=== PATIENT | female | born 1995 | race Caucasian/White ===

== ENCOUNTER → 2017-10-14 16:19 | Outpatient (CLI) | payer BC, SELFPAY ==
[2017-10-14 17:17] LABS: Erythrocyte Sedimentation Rate 13 mm/hr (0-20)
[2017-10-14 17:45] LABS: CRP < 2.90 mg/L (0.0-3.0); Uric Acid 4.5 mg/dL (2.6-6.0)
== END ==
PROVIDERS: Family Provider Family Medicine; PCP Family Medicine; Visit Provider Family Medicine
DX: M79.674 Pain in right toe(s) (principal); R21 Rash and other nonspecific skin eruption
CPT/HCPCS: 36415; 84550; 85652; 86140

== ENCOUNTER → 2017-11-03 14:08 | Outpatient (CLI) | payer BC, SELFPAY ==
--- NOTE | 2017-11-03 14:15 | RAD_ITS ---
STUDY: X-RAY - PELVIS REASON FOR EXAM: Female, 22 years old. Psoriatic arthropathy. TECHNIQUE: One view of the pelvis was obtained. COMPARISON: None. FINDINGS: There is a non-specific bowel gas pattern. Normal visualized soft tissue structures. Surgical clips right hemipelvis. Normal bilateral iliac wings, sacroiliac joints and visualized sacrum. Normal visualized bilateral superior and inferior pubic rami. Normal pubic symphysis. Normal ischial tuberosities. Normal visualized right femoral head. Normal right acetabulum. Normal right hip joint. No erosions. Normal visualized left femoral head. Normal left acetabulum. Normal left hip joint. No erosions. RAD/Pelvis 1 or 2 Views IMPRESSION: Normal x-ray examination of the pelvis. Electronically Signed: Pacheco Dsouza MD at 7:53 EDT , Service support ,
--- NOTE | 2017-11-03 14:15 | RAD_ITS ---
STUDY: X-RAY CHEST REASON FOR EXAM: Female, 22 years old. Psoriatic arthropathy. TECHNIQUE: PA and lateral chest. COMPARISON: None. FINDINGS: The lungs are clear and expanded. There is no demonstrated pleural abnormality. Normal size heart. Normal mediastinum and tiff. Normal visualized pulmonary arteries. Normal visualized aortic arch and descending thoracic aorta. Normal visualized thoracic spine. Normal visualized ribs, clavicles, and shoulders. No erosions. There is no demonstrated abnormality of the visualized soft tissue structures of the upper abdomen. RAD/Chest PA and Lateral IMPRESSION: Normal x-ray examination of the chest. Electronically Signed: Pacheco Dsouza MD at 7:53 EDT , Service support ,
[2017-11-03 15:35] LABS: Absolute Lymphocyte Count 1.23 X10^3/ul (0.83-4.51); Absolute Neutrophil Count 5.1 X10^3/uL (2.0-7.7); Basophil# 0.02 X10^3/uL; Basophil% 0.3 % (0-1); Eosinophil# 0.09 X10^3/uL; Eosinophils% 1.3 % (0-5); Hematocrit 37.9 % (37-47); Hemoglobin 12.6 g/dl (12.0-15.0); Lymphocyte # 1.23 X10^3/ul (4.0); Lymphocyte % 17.4 % (19-41); Mean Corp Hgb Conc 33.2 g/gl (32-36); Mean Corpuscular Hgb 31.1 pg (27.0-32.0); Mean Corpuscular Volume 93.6 fL (81-99); Mean Platelet Vol. 10.5 fl (6.2-12.0); Monocyte# 0.59 X10^3/uL; Monocyte% 8.4 % (0-10); Neutrophil # 5.11 X10^3/uL (2.7-7.7); Neutrophil % 72.5 % (47-70); Platelet Count 285 K/mm3 (150-450); RBC Distribution Width CV 13.2 % (11.6-14.6); RBC Distribution Width SD 43.9 fl (35.1-43.9); Red Blood Count 4.05 M/mm3 (4.2-5.4); White Blood Count 7.1 K/mm3 (4.4-11.0)
[2017-11-03 15:42] LABS: AST(SGOT) 14 U/L (15-37); Alanine Aminotransfer ALT/SGPT 18 U/L (13-56); Albumin, Serum 3.8 g/dL (3.2-5.0); Alkaline Phosphatase 60 U/L (45-117); Anion Gap 8 (5-15); BUN 9 mg/dL (7-18); BUN/Creat Ratio 12.5 RATIO (10-20); Calcium,Total 8.8 mg/dL (8.5-10.1); Chloride 104 mmol/L (98-107); Creatinine, Serum 0.72 mg/dL (0.55-1.02); EST Glomerular Filtration Rate 106 mL/min (>60); Est Glom Filt Rate - Afr Amer 128 mL/min (>60); Globulin 3.7 g/dL (2.2-4.2); Glucose 92 mg/dL (74-106); Potassium 3.5 mmol/L (3.5-5.1); Protein, Total 7.5 g/dL (6.4-8.2); Rheumatoid Factor < 10.0 IU/mL (<15); Sodium Level 139 mmol/L (136-145)
[2017-11-03 15:46] LABS: POSITIVE COUNT NO; POSITIVE DIFFERENTIAL NO; POSITIVE MORPHOLOGY NO
[2017-11-10 14:07] LABS: QNTFERON TB Ag Minus Nil Value 0 IU/mL (.); QNTFERON TB Ag Value 0.01 IU/mL (.); QNTFERON TB Mitogen Value > 10.00 IU/mL (.); QNTFERON TB Nil Value 0.01 IU/mL (.)
[2017-11-12 11:42] LABS: CCP IgG Antibodies 4 units (0-19); HEPATITIS B SURFACE AG Negative (Negative); HLA B27 Negative (.); Hep B Surface Antibodies Non Reactive (.); Hep C Antibodies <0.1 s/co ratio (0.0-0.9); QNTIFERON TB Gold Negative (Negative)
== END ==
PROVIDERS: Family Provider Family Medicine; PCP Family Medicine; Visit Provider Internal Medicine Rheumatology
DX: L40.59 Other psoriatic arthropathy (principal); L40.8 Other psoriasis
CPT/HCPCS: 36415; 71046; 72170; 80053; 81374; 85025; 86200; 86431; 86480; 86706; 86803; 87340

== ENCOUNTER → 2017-12-24 16:08 | Outpatient (CLI) | payer BC, SELFPAY ==
[2017-12-24 18:57] LABS: Free T3 2.7 pg/mL (2.18-3.98); T4 Free Direct 0.96 ng/dL (0.76-1.46); Thyroid Stim Hormone (TSH) 4.57 uIU/mL (0.358-3.74)
[2017-12-26 11:53] LABS: Thyroid Peroxidase AB 106 IU/mL (0-34)
== END ==
PROVIDERS: Family Provider Family Medicine; PCP Family Medicine; Visit Provider Family Medicine
DX: E03.9 Hypothyroidism, unspecified (principal)
CPT/HCPCS: 36415; 84146; 84439; 84443; 84481; 86376

== ENCOUNTER → 2018-03-09 14:55 | Outpatient (CLI) | payer BC, SELFPAY ==
[2018-03-09 18:09] LABS: Thyroid Stim Hormone (TSH) 1.78 uIU/mL (0.358-3.74)
== END ==
PROVIDERS: Family Provider Family Medicine; PCP Family Medicine; Visit Provider Family Medicine
DX: R94.6 Abnormal results of thyroid function studies (principal)
CPT/HCPCS: 36415; 84443

== ENCOUNTER → 2018-06-15 16:07 | Outpatient (CLI) | payer BC, SELFPAY ==
[2018-06-15 17:46] LABS: T4 Free Direct 1.05 ng/dL (0.76-1.46); Thyroid Stim Hormone (TSH) 1.41 uIU/mL (0.358-3.74)
== END ==
PROVIDERS: Family Provider Family Medicine; PCP Family Medicine; Visit Provider Family Medicine
DX: E03.9 Hypothyroidism, unspecified (principal)
CPT/HCPCS: 36415; 84439; 84443

== ENCOUNTER → 2018-11-30 16:06 | Outpatient (CLI) | payer BC, SELFPAY ==
[2018-11-30 17:45] LABS: Free T3 2.6 pg/mL (2.18-3.98); Iron 69 ug/dL (50-170); T4 Free Direct 1.14 ng/dL (0.76-1.46); Thyroid Stim Hormone (TSH) 1.84 uIU/mL (0.358-3.74)
[2018-11-30 17:50] LABS: Vitamin B12 519 pg/mL (211-911)
== END ==
PROVIDERS: Family Provider Family Medicine; PCP Family Medicine; Visit Provider Family Medicine
DX: E03.9 Hypothyroidism, unspecified (principal); L40.9 Psoriasis, unspecified; E53.8 Deficiency of other specified B group vitamins; D64.9 Anemia, unspecified
CPT/HCPCS: 36415; 82607; 83540; 84439; 84443; 84481